=== PATIENT | female | born 1975 | race Caucasian/White ===

== ENCOUNTER 2019-08-23 22:09 | Emergency (ER) | payer BC, OTHER ==
[2019-08-23 22:21] VITALS: BP 126/85; PULSE 69; TEMP 97.7; BMI 21.7
--- NOTE | 2019-08-23 22:35 | PDOC ---
History of Present Illness - General Chief Complaint: Nausea/Vomiting Stated Complaint: VOMITTING Time Seen by Provider: 08/23/19 22:32 History Source: Patient Exam Limitations: No Limitations - History of Present Illness Initial Comments: 08/23/19 22:33 Carmelita Brown is a 43F with PMH vertigo on meclizine recently diagnosed with influenza presenting with nausea and vomiting. Patient reports last Monday felt URi sx, Monday was diagnosed with the flu, started on Tamiflu. Has history of vertigo, takes daily meclizine. For last 5 days has had worsening nausea and vomiting, says her vertigo has only gotten worse, described as room-spinning constantly, worst it has ever been, unable to tolerate PO without vomiting for 2 days straight, gotten to the point of green vomit without blood. Also having diarrhea with vomit and subjective fever/ chills. Denies abdominal pain, chest pain, SOB, urinary sx. Unable to ambulate 2 /2 dizziness. No abdominal surgeries, no recent alcohol use, last marijuana use 2 weeks ago. No other sick contacts or significant PMH. 08/23/19 23:[address] Oropeza at [facility] Past History - Past Medical History Allergies/Adverse Reactions: Allergies Allergy/AdvReac Type Severity Reaction Status Date / Time No Known Allergies Allergy Verified 08/23/19 22:20 Home Medications: Ambulatory Orders Meclizine HCl [Antivert -] 50 mg PO BID PRN #30 tablet 08/23/19 Ondansetron [Zofran -] 4 mg PO BID PRN #20 tablet 08/23/19 COPD: No Other medical history: veritgo - Psycho Social/Smoking Cessation Hx Smoking History: Current every day smoker Have you smoked in the past 12 months: Yes Number of Cigarettes Smoked Daily: 3 Information on smoking cessation initiated: No Hx Alcohol Use: No Drug/Substance Use Hx: No Review of Systems - Review of Systems Able to Perform ROS?: Yes Constitutional: Yes: Chills, Fever HEENTM: No: Symptoms Reported Respiratory: No: Symptoms reported Cardiac (ROS): No: Symptoms Reported ABD/GI: Yes: Diarrhea, Nausea, Poor Appetite, Poor Fluid Intake, Vomiting : No: Symptoms Reported Musculoskeletal: No: Symptoms Reported Integumentary: No: Symptoms Reported Neurological: Yes: Unsteady Gait, Ataxia, Dizziness. No: Headache, Weakness Endocrine: No: Symptoms Reported Hematologic/Lymphatic: No: Symptoms Reported All Other Systems: Reviewed and Negative *Physical Exam - Vital Signs Last Vital Signs Temp Pulse Resp BP Pulse Ox 97.7 F 69 17 126/85 100 08/23/19 22:14 08/23/19 22:14 08/23/19 22:14 08/23/19 22:14 08/23/19 22:14 - Physical Exam General Appearance: Yes: Nourished, Appropriately Dressed, Mild Distress HEENT: positive: EOMI (horizontal nystagmus), FOREIGN, Normal ENT Inspection, Normal Voice, Symmetrical, Pharynx Normal, Hearing Grossly Normal. negative: Scleral Icterus (R), Scleral Icterus (L), Pharyngeal Erythema, Tonsillar Exudate , Tonsillar Erythema Neck: positive: Trachea midline, Normal Thyroid, Supple. negative: Tender, Rigid, Lymphadenopathy (R), Lymphadenopathy (L), Tender lateral, Tender midline Respiratory/Chest: positive: Lungs Clear, Normal Breath Sounds. negative: Chest Tender, Respiratory Distress, Accessory Muscle Use, Crackles, Rales, Rhonchi, Stridor, Wheezing Cardiovascular: positive: Regular Rhythm, Regular Rate. negative: Murmur Gastrointestinal/Abdominal: positive: Normal Bowel Sounds, Flat, Soft. negative : Tender, Organomegaly, Guarding, Rebound Musculoskeletal: positive: Normal Inspection. negative: CVA Tenderness Extremity: positive: Normal Capillary Refill, Normal Inspection, Normal Range of Motion, Pelvis Stable. negative: Tender Integumentary: positive: Normal Color, Warm, Diaphoresis Neurologic: positive: transportation coordinator II-XII NML intact, Fully Oriented, Alert, Normal Mood/ Affect, Normal Response, Motor Strength 5/5, Other (unable to ambulate or sit up without dizziness). negative: Numbness ED Treatment Course - LABORATORY CBC & Chemistry Diagram: 08/23/19 22:51 08/23/19 22:51 Medical Decision Making - Medical Decision Making 08/23/19 23:28 Patient has known history of vertigo that has been acutely worsened by recent influenza, has classic influenza sx including fever/chills, nausea, vomiting, diarrhea. Low suspicion of worse brain pathology given normal neuro exam, known vertigo, says room is spinning like normal but worse today. No abdominal pain or urinary sx concerning for GI/ pathology for nausea. - CBC/CMP for infection/lytes eval - lipase for eval of pancreatitis as cause of nausea, low suspicion - serum for as cause of nasea - UA/UC for eval UTI as cause of nausea, low suspicion, may not be needed - 1L NS, 4mg Zofran, 1g Ofirmev for nausea and chills symptomatic treatment - low threshold to give more meclizine once nausea subsides Plan to give meds, re-evaluate, give meclizine vs. small dose of Ativan for nausea if needed, otherwise PO challenge and dispo. 08/23/19 23:36 Labs notable for: - serum negative - CBC WNL - CMP WNL 08/23/19 23:54 Patient re-assessed, nausea greatly improved, still dizzy. Feels much better. Will attempt to PO meclizine. Sending script for meclizine refill and Zofran. 08/24/19 00:[address] Alexander with night team, plan for meclizine > PO challenge > home. Discharge - Discharge Information Problems reviewed: Yes Clinical Impression/Diagnosis: Vertigo Nausea & vomiting Qualifiers: Vomiting type: bilious vomiting Qualified Code(s): R11.14 - Bilious vomiting Condition: Stable Disposition: HOME - Admission No - Additional Discharge Information Prescriptions: Meclizine HCl [Antivert -] 50 mg PO BID PRN #30 tablet PRN Reason: Vertigo Ondansetron [Zofran -] 4 mg PO BID PRN #20 tablet PRN Reason: Nausea - Follow up/Referral Referrals: ON STAFF,NOT [Primary Care Provider] - - Patient Discharge Instructions Patient Printed Discharge Instructions: DI for Influenza -- Adult Additional Instructions: Today you were evaluated for nausea and vomiting with vertigo. Your symptoms are being caused by having the flu on top of your baseline vertigo. Your blood labs show no infection or electrolyte problems. We gave you some IV fluids, Zofran, and Tylenol for your symptoms and you felt better. The treatment for the flu is rest and lots of fluids such as Gatorade or soup. We have sent prescriptions for meclizine and Zofran for nausea which you can use as you need until you recover. Please follow-up with your primary doctor in the next 3 days for further care. If you experience worsening fever, vomiting, diarrhea, chest pain, numbness/tingling, or any other new or concerning symptoms, please return to the emergency room. - Post Discharge Activity
[2019-08-23] MEDS ORDERED: ACETAMINOPHEN 1000 MG/100 ML VIAL (NON FORMULARY) IVPB ONE (22:55)
[2019-08-23] MEDS ORDERED: SODIUM CHLORIDE 0.9% 500 ML INFUS.BAG IV ONE (22:55)
[2019-08-23] MEDS ORDERED: ONDANSETRON 4 MG/2 ML VIAL IVPUSH ONE (22:55)
[2019-08-23] MEDS ORDERED: ACETAMINOPHEN INJECTION 100 ML IVPB ONE (22:58)
[2019-08-23] MEDS ORDERED: ONDANSETRON 4 MG/2 ML VIAL ONE (22:58)
[2019-08-23 23:12] LABS: BASO % 0.6 % (0-2.0); HEMATOCRIT 40.3 % (32.4-45.2); HEMOGLOBIN 13.6 GM/dL (10.7-15.3); LYMPH % 38.6 % (8-40); MCH 30.5 pg (25.7-33.7); MCHC 33.8 g/dl (32.0-36.0); MEAN CELL VOLUME 90.3 fl (80-96); MEAN PLT VOLUME 10.4 fl (7.5-11.1); MONO % 8.3 % (3.8-10.2); NEUT % 51.5 % (42.8-82.8); PLATELET COUNT 228 K/MM3 (134-434); RBC 4.46 M/mm3 (3.60-5.2); RDW 13.5 % (11.6-15.6); WHITE BLOOD COUNT 7.2 K/mm3 (4.0-10.0)
[2019-08-23 23:40] LABS: ALBUMIN 3.6 g/dl (3.4-5.0); BILIRUBIN,TOTAL 0.6 mg/dL (0.2-1); BLOOD UREA NITROGEN 15.2 mg/dL (7-18); CREATININE 0.8 mg/dL (0.55-1.3); POTASSIUM 3.9 mmol/L (3.5-5.1); TOT PROT 6.7 g/dl (6.4-8.2)
[2019-08-24] MEDS ORDERED: MECLIZINE HCL 25 MG TABLET (FP) PO ONE (00:08)
--- NOTE | 2019-08-24 00:11 | PDOC ---
*Physical Exam - Vital Signs Last Vital Signs Temp Pulse Resp BP Pulse Ox 97.7 F 69 17 126/85 100 08/23/19 22:14 08/23/19 22:14 08/23/19 22:14 08/23/19 22:14 08/23/19 22:14 ED Treatment Course - LABORATORY CBC & Chemistry Diagram: 08/23/19 22:51 08/23/19 22:51 - ADDITIONAL ORDERS Additional order review: Laboratory Results 08/23/19 08/23/19 22:51 22:51 Sodium 142 Potassium 3.9 Chloride 109 H Carbon Dioxide 27 Anion Gap 6 L BUN 15.2 Creatinine 0.8 Est GFR (CKD-EPI)AfAm 105.39 Est GFR (CKD-EPI)NonAf 90.93 Random Glucose 92 Calcium 9.0 Total Bilirubin 0.6 AST 18 ALT 30 Alkaline Phosphatase 39 L Total Protein 6.7 Albumin 3.6 Lipase 100 Serum , Qual Negative 08/23/19 22:51 RBC 4.46 MCV 90.3 MCHC 33.8 RDW 13.5 MPV 10.4 Neutrophils % 51.5 Lymphocytes % 38.6 Monocytes % 8.3 Eosinophils % 1.0 Basophils % 0.6 - Medications Given in the ED: ED Medications Discontinued Medications Generic Name Dose Route Start Last Admin Trade Name Freq PRN Reason Stop Dose Admin Acetaminophen 1,000 mg 08/23/19 22:55 08/23/19 23:07 Ofirmev Injection - IVPB 08/23/19 22:56 1,000 mg ONCE ONE Administration Ondansetron HCl 4 mg 08/23/19 22:55 08/23/19 23:08 Zofran Injection IVPUSH 08/23/19 22:56 4 mg NOW ONE Administration Sodium Chloride 1,000 ml 08/23/19 22:55 08/23/19 23:08 Normal Saline - IV 08/23/19 22:56 1,000 ml ONCE ONE Administration Medical Decision Making - Medical Decision Making 08/24/19 00:09 hx of vertigo, prn meclizine, diagnosed with flu on Monday has had worsening vertigo subjective fever, chlls, diarrhea, flu+ zofran, fluids, ofirmev, meclizine PO challenge labs wnl negative preg Dispo PO challenge and observe. if it works then discharge. Discharge - Discharge Information Problems reviewed: Yes Clinical Impression/Diagnosis: Vertigo Nausea & vomiting Qualifiers: Vomiting type: bilious vomiting Qualified Code(s): R11.14 - Bilious vomiting Condition: Stable Disposition: HOME - Additional Discharge Information Prescriptions: Meclizine HCl [Antivert -] 50 mg PO BID PRN #30 tablet PRN Reason: Vertigo Ondansetron [Zofran -] 4 mg PO BID PRN #20 tablet PRN Reason: Nausea - Follow up/Referral Referrals: ON STAFF,NOT [Primary Care Provider] - - Patient Discharge Instructions Patient Printed Discharge Instructions: DI for Influenza -- Adult Additional Instructions: Today you were evaluated for nausea and vomiting with vertigo. Your symptoms are being caused by having the flu on top of your baseline vertigo. Your blood labs show no infection or electrolyte problems. We gave you some IV fluids, Zofran, and Tylenol for your symptoms and you felt better. The treatment for the flu is rest and lots of fluids such as Gatorade or soup. We have sent prescriptions for meclizine and Zofran for nausea which you can use as you need until you recover. Please follow-up with your primary doctor in the next 3 days for further care. If you experience worsening fever, vomiting, diarrhea, chest pain, numbness/tingling, or any other new or concerning symptoms, please return to the emergency room. - Post Discharge Activity
--- NOTE | 2019-08-24 00:22 | PDOC ---
Documentation entered by Amaris Yu SCRIBE, acting as scribe for Camelia Carrillo MD. Camelia Carrillo MD: This documentation has been prepared by the Gigi alberts Brenda, SCRIBE, under my direction and personally reviewed by me in its entirety. I confirm that the documentation accurately reflects all work, treatment, procedures, and medical decision making performed by me. Attending Attestation - Resident Resident Name: Solomon Pinedo - ED Attending Attestation I have performed the following: I have examined & evaluated the patient, The case was reviewed & discussed with the resident, I agree w/resident's findings & plan, Exceptions are as noted - HPI HPI: 08/23/19 23:23 Ms. Zunilda Brown is a 43 year old female with a significant PMH of vertigo who presents to the ED for evaluation of 1 week of worsening vertigo symptoms accompanied by nausea and vomiting. Pt states she was recently diagnosed with the Flu and was started on Tamuflu. She has been unable to tolerate Po due to nausea and vomiting, therefore her vertigo has persisted No headache Right ear cerumen impacted The patient denies chest pain, shortness of breath, headache and dizziness. Denies abdominal pain and constipation. Denies dysuria, frequency, urgency and hematuria. Allergies: NKA Social history: No reported hx of tobacco use, alcohol use or illicit drug use. 08/24/19 00:06 - Physicial Exam PE: 08/23/19 23:29 GENERAL: The patient is in no acute distress, resting comfortably. ENT: Ears normal, nares patent, oropharynx clear without exudates. Moist mucous membranes. NECK: Normal range of motion, supple LUNGS: Breath sounds equal, clear to auscultation bilaterally. No wheezes, and no crackles. HEART: Regular rate and rhythm, normal S1 and S2 without murmur, rub or gallop. ABDOMEN: Soft, nontender, normoactive bowel sounds. No guarding, no rebound. No masses palpable. EXTREMITIES: Normal range of motion, no edema. NEUROLOGICAL: Cranial nerves II through XII grossly intact. Normal speech. No focal neurological deficits. No nystamus noted SKIN: Warm, Dry, normal turgor, no rashes or lesions noted. 08/24/19 00:15 - Medical Decision Making 08/24/19 00:17 43 yo F presenting with a complaint of vertigo, nausea and vomiting Vertigo is consistent with prior episodes of vertigo Will do Basic labs Zofran IVF Meclizine Re Assess 08/24/19 00:22 Laboratory Tests 08/23/19 08/23/19 08/23/19 22:51 22:51 22:51 WBC 7.2 Hgb 13.6 Hct 40.3 Plt Count 228 BUN 15.2 Creatinine 0.8 Serum , Qual Negative Signed out pending re assessment of dizziness Clinical impression: vertigo, initial presentation
[2019-08-24] MEDS ORDERED: MECLIZINE HCL 25 MG TABLET (FP) ONE (00:50)
== END 2019-08-24 01:30 | disposition home or self-care (01) ==
LOC: SUPCPDRO 22:09 → JER 22:09
PROC: 3E033GC Introduction of Other Therapeutic Substance into Peripheral Vein, Percutaneous Approach (ICD-10-PCS; principal; 2019-08-23)
PROC: 3E033NZ Introduction of Analgesics, Hypnotics, Sedatives into Peripheral Vein, Percutaneous Approach (ICD-10-PCS; 2019-08-23)
DX: R42 Dizziness and giddiness (principal); R11.14 Bilious vomiting
CPT/HCPCS: 36415; 80053; 83690; 84703; 85025; 99283-25; J0131

== ENCOUNTER 2021-02-09 11:34 | Emergency (ER) | payer BC, OTHER ==
[2021-02-09 11:45] VITALS: BP 122/82; PULSE 79; TEMP 97.5; BMI 22.6
[2021-02-09] MEDS ORDERED: SODIUM CHLORIDE 0.9% 500 ML INFUS.BAG IV ONE (12:26)
[2021-02-09] MEDS ORDERED: ONDANSETRON 4 MG/2 ML VIAL IVPUSH ONE ×2 (12:26→17:22)
[2021-02-09] MEDS ORDERED: ONDANSETRON 4 MG/2 ML VIAL ONE ×2 (12:45→17:26)
[2021-02-09 12:59] LABS: BASO % 0.4 % (0-2.0); HEMATOCRIT 42.3 % (32.4-45.2); HEMOGLOBIN 13.8 GM/dL (10.7-15.3); LYMPH % 4.7 % (8-40); MCHC 32.7 g/dl (32.0-36.0); MEAN CELL VOLUME 91.7 fl (80-96); MEAN PLT VOLUME 10.3 fl (7.5-11.1); MONO % 1.5 % (3.8-10.2); NEUT % 93.4 % (42.8-82.8); PLATELET COUNT 205 10^3/uL (134-434); RBC 4.61 M/mm3 (3.60-5.2); RDW 13.9 % (11.6-15.6); WHITE BLOOD COUNT 11.7 K/mm3 (4.0-10.0)
[2021-02-09 13:07] LABS: BLOOD UREA NITROGEN 17.3 mg/dL (7-18); CALCIUM 9.3 mg/dL (8.5-10.1)
[2021-02-09 13:11] LABS: CREATININE 0.8 mg/dL (0.55-1.3)
[2021-02-09] MEDS ORDERED: MECLIZINE HCL 25 MG TABLET (FP) PO ONE (13:47)
[2021-02-09 13:53] LABS: ANISOCYTOSIS 0; HELMET CELLS 0; HOWELL-JOLLY BODIES 0; MACROCYTOSIS 0; OVALOCYTE 0; PLATELET ESTIMATE NORMAL; ROULEAU 0; SICKELED CELLS 0; TARGET CELLS 0; TEAR DROP CELLS 0; TOXIC GRANULATION 0
[2021-02-09] MEDS ORDERED: MECLIZINE HCL 25 MG TABLET (FP) ONE (14:13)
[2021-02-09] MEDS ORDERED: diazePAM 2 MG TABLET PO ONE ×2 (14:56→17:22)
[2021-02-09] MEDS ORDERED: diazePAM 2 MG TABLET ONE ×2 (15:55→17:26)
== END 2021-02-09 19:54 | disposition home or self-care (01) ==
LOC: JER 11:34
PROC: 3E033GC Introduction of Other Therapeutic Substance into Peripheral Vein, Percutaneous Approach (ICD-10-PCS; principal; 2021-02-09)
PROC: 3E033GC Introduction of Other Therapeutic Substance into Peripheral Vein, Percutaneous Approach (ICD-10-PCS; 2021-02-09)
DX: R42 Dizziness and giddiness (principal); R11.2 Nausea with vomiting, unspecified
CPT/HCPCS: 36415; 70450-TC; 80048; 84703; 85025; 99284-25

== ENCOUNTER 2022-01-28 15:52 | Emergency (ER) | payer BC, OTHER ==
[2022-01-28 16:12] VITALS: BP 135/75; PULSE 67; TEMP 98.1; BMI 23.3
[2022-01-28] MEDS ORDERED: SODIUM CHLORIDE 1,000 ML IV STA (16:59)
[2022-01-28] MEDS ORDERED: ACETAMINOPHEN 1000 MG/100 ML BAG IVPB ONE (17:07)
[2022-01-28] MEDS ORDERED: ONDANSETRON 4 MG/2 ML VIAL IVPUSH ONE (17:08)
[2022-01-28] MEDS ORDERED: FAMOTIDINE 20 MG/50 ML IVPB 20 MG/50 ML MG IVPB ONE ×2 (17:08→18:18)
[2022-01-28] MEDS ORDERED: ACETAMINOPHEN INJECTION 100 ML IVPB ONE (18:17)
[2022-01-28] MEDS ORDERED: ONDANSETRON 4 MG/2 ML VIAL ONE (18:18)
[2022-01-28 18:34] LABS: EPI CELLS 22 /uL (0-25.1); HCG,QUALITATIVE URINE Negative; HYALINE CASTS 2 /uL (0-3.1); URINE APPEARANCE CLEAR; URINE BACTERIA 210 /uL (0-1359); URINE BILIRUBIN NEGATIVE (NEGATIVE); URINE COLOR YELLOW; URINE GLUCOSE (UA) NEGATIVE (NEGATIVE); URINE KETONE TRACE (NEGATIVE); URINE LEUK ESTERASE NEGATIVE (NEGATIVE); URINE NITRITE NEGATIVE (NEGATIVE); URINE PROTEIN TRACE (NEGATIVE); URINE RBC 6 /uL (0-23.9); URINE UROBILINOGEN 0.2 mg/dL (0.2-1.0); URINE WBC 23 /uL (0-25.8)
[2022-01-28 18:48] LABS: BASO % 0.3 % (0-2.0); HEMATOCRIT 44.1 % (32.4-45.2); HEMOGLOBIN 14.9 GM/dL (10.7-15.3); LYMPH % 6.7 % (8-40); MCH 30.8 pg (25.7-33.7); MCHC 33.7 g/dl (32.0-36.0); MEAN CELL VOLUME 91.5 fl (80-96); MEAN PLT VOLUME 10.8 fl (7.5-11.1); MONO % 2.7 % (3.8-10.2); NEUT % 90.3 % (42.8-82.8); PLATELET COUNT 249 10^3/uL (134-434); RBC 4.83 M/mm3 (3.60-5.2); RDW 13.6 % (11.6-15.6); WHITE BLOOD COUNT 10.6 K/mm3 (4.0-10.0)
[2022-01-28 19:55] LABS: CALCIUM 9.9 mg/dL (8.5-10.1)
[2022-01-28 19:56] LABS: ALBUMIN 4.6 g/dl (3.4-5.0); BLOOD UREA NITROGEN 23.1 mg/dL (7-18)
[2022-01-28 19:59] LABS: CREATININE 1.1 mg/dL (0.55-1.3)
[2022-01-28 20:01] LABS: BILIRUBIN,TOTAL 0.7 mg/dL (0.2-1); TOT PROT 8.2 g/dl (6.4-8.2)
== END 2022-01-28 20:12 | disposition home or self-care (01) ==
LOC: JER 15:52
PROC: 3E033NZ Introduction of Analgesics, Hypnotics, Sedatives into Peripheral Vein, Percutaneous Approach (ICD-10-PCS; principal; 2022-01-28)
PROC: 3E033GC Introduction of Other Therapeutic Substance into Peripheral Vein, Percutaneous Approach (ICD-10-PCS; 2022-01-28)
PROC: 3E033GC Introduction of Other Therapeutic Substance into Peripheral Vein, Percutaneous Approach (ICD-10-PCS; 2022-01-28)
PROC: 3E0337Z Introduction of Electrolytic and Water Balance Substance into Peripheral Vein, Percutaneous Approach (ICD-10-PCS; 2022-01-28)
DX: R11.2 Nausea with vomiting, unspecified (principal)
CPT/HCPCS: 0241U-QW; 36415; 76705-TC; 80053; 81003; 83690; 84703; 85025; 87086; 99285-25

== ENCOUNTER 2023-04-17 00:24 | Emergency (ER) | payer BC, OTHER ==
[2023-04-17 00:33] VITALS: BP 129/91; PULSE 105; RESP 18; TEMP 98.3; BMI 23.8
[2023-04-17] MEDS ORDERED: FAMOTIDINE 20 MG/50 ML IVPB 20 MG/50 ML MG IVPB ONE ×3 (00:49→01:21)
[2023-04-17] MEDS ORDERED: ACETAMINOPHEN 1000 MG/100 ML BAG IVPB ONE ×2 (00:49→01:22)
[2023-04-17] MEDS ORDERED: SODIUM CHLORIDE 1,000 ML IV STA (00:49)
[2023-04-17] MEDS ORDERED: ONDANSETRON 4 MG/2 ML VIAL IVPUSH ONE ×2 (00:49→01:17)
[2023-04-17] MEDS ORDERED: ACETAMINOPHEN INJECTION 100 ML IVPB ONE (01:15)
[2023-04-17] MEDS ORDERED: SODIUM CHLORIDE 0.9% 500 ML INFUS.BAG IV ONE (01:17)
[2023-04-17] MEDS ORDERED: ONDANSETRON 4 MG/2 ML VIAL ONE (01:22)
[2023-04-17 01:53] LABS: BASO % 0.9 % (0-2.0); HEMATOCRIT 43.6 % (32.4-45.2); HEMOGLOBIN 14.4 GM/dL (10.7-15.3); MCH 30.3 pg (25.7-33.7); MCHC 33.1 g/dl (32.0-36.0); MEAN CELL VOLUME 91.6 fl (80-96); MONO % 1.6 % (3.8-10.2); NEUT % 87.5 % (42.8-82.8); PLATELET COUNT 275 10^3/uL (134-434); RBC 4.76 M/mm3 (3.60-5.2); RDW 13.7 % (11.6-15.6); WHITE BLOOD COUNT 12.9 K/mm3 (4.0-10.0)
[2023-04-17 02:00] LABS: EPI CELLS >36 /uL (0-25.1); HYALINE CASTS 2 /uL (0-3.1); PH,URINE >= 9.0 (5.0-8.0); URINE APPEARANCE CLOUDY; URINE BACTERIA 2525 /uL (0-1359); URINE BILIRUBIN NEGATIVE (NEGATIVE); URINE COLOR YELLOW; URINE GLUCOSE (UA) NEGATIVE (NEGATIVE); URINE KETONE 2+ (NEGATIVE); URINE LEUK ESTERASE NEGATIVE (NEGATIVE); URINE NITRITE NEGATIVE (NEGATIVE); URINE PROTEIN 2+ (NEGATIVE); URINE RBC 16 /uL (0-23.9); URINE WBC 40 /uL (0-25.8)
[2023-04-17 02:01] LABS: HCG,QUALITATIVE URINE Negative
[2023-04-17 02:31] LABS: POTASSIUM 4.6 mmol/L (3.5-5.1)
[2023-04-17 02:33] LABS: ALBUMIN 4.2 g/dl (3.4-5.0); CALCIUM 9.4 mg/dL (8.5-10.1)
[2023-04-17 02:34] LABS: BLOOD UREA NITROGEN 12.6 mg/dL (7-18)
[2023-04-17 02:38] LABS: BILIRUBIN,TOTAL 0.5 mg/dL (0.2-1); TOT PROT 7.6 g/dl (6.4-8.2)
[2023-04-17] MEDS ORDERED: METOCLOPRAMIDE HCL INJECTION 10 MG/2 ML VIAL IVPUSH ONE (02:47)
[2023-04-17] MEDS ORDERED: METOCLOPRAMIDE HCL INJECTION 10 MG/2 ML VIAL ONE (03:23)
== END 2023-04-17 04:11 | disposition home or self-care (01) ==
LOC: JER 00:24
PROC: 3E033GC Introduction of Other Therapeutic Substance into Peripheral Vein, Percutaneous Approach (ICD-10-PCS; principal; 2023-04-17)
PROC: 3E033GC Introduction of Other Therapeutic Substance into Peripheral Vein, Percutaneous Approach (ICD-10-PCS; 2023-04-17)
PROC: 3E033GC Introduction of Other Therapeutic Substance into Peripheral Vein, Percutaneous Approach (ICD-10-PCS; 2023-04-17)
PROC: 3E033NZ Introduction of Analgesics, Hypnotics, Sedatives into Peripheral Vein, Percutaneous Approach (ICD-10-PCS; 2023-04-17)
DX: R11.2 Nausea with vomiting, unspecified (principal); R19.7 Diarrhea, unspecified; R10.13 Epigastric pain; R51.9 Headache, unspecified; R68.83 Chills (without fever); Z20.822 Contact with and (suspected) exposure to COVID-19
CPT/HCPCS: 0241U-QW; 36415; 80053; 81003; 83690; 83735; 84703; 85025; 87086; 99284-25